=== PATIENT | male | born 1965 | race African-American/Black ===

== ENCOUNTER 2017-09-15 19:08 | Emergency (ER) | payer OTHER ==
[2017-09-15] MEDS ORDERED: KETOROLAC TROMETHAMINE 60 MG/2 ML VIAL IM ONE (19:25)
--- NOTE | 2017-09-15 19:25 | PDOC ---
History of Present Illness - General History Source: Patient Exam Limitations: No Limitations - History of Present Illness Initial Comments: 09/15/17 20:18 Patient is a 52 year old male with a significant past medical history of Afib, who presents to the ED with complaints of right sided back pain that he states began this afternoon. 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 He reports pain increases with inhalation while both sitting and standing straight. He reported on arrival that he felt as is one of his lungs was going to explode due to pressure pain. Patient reports taking to Ibuprofen for pain with no relief. Denies Chest pain, Denies nausea, vomiting. Denies fevers, chills. Denies contact with sick individuals, out of state travelling. Denies any other symptoms. Allergies: None Social history: Current smoker (1 pack per day). No alcohol. No illicit drugs. Surgical history: None PMD: None <Rishabh Miller - Last Filed: 09/15/17 20:36> <Lexx Matt - Last Filed: 09/16/17 06:23> - General Chief Complaint: Pain, Acute Stated Complaint: RIGHT BACK PAIN SINCE 2PM Time Seen by Provider: 09/15/17 19:24 Past History <Rishabh Miller - Last Filed: 09/15/17 20:36> - Past Medical History Cardiac Disorders: Yes (A FIB) CVA: Yes (afib) COPD: No - Immunization History Immunization Up to Date: Yes - Suicide/Smoking/Psychosocial Hx Smoking History: Current every day smoker Have you smoked in the past 12 months: Yes Number of Cigarettes Smoked Daily: 20 Cigars Per Day: 0 Information on smoking cessation initiated: Yes 'Breaking Loose' booklet given: 05/25/16 Hx Alcohol Use: No Drug/Substance Use Hx: No Substance Use Type: Cocaine Hx Substance Use Treatment: No <Lexx Matt - Last Filed: 09/16/17 06:23> - Past Medical History Allergies/Adverse Reactions: Allergies Allergy/AdvReac Type Severity Reaction Status Date / Time No Known Allergies Allergy Verified 09/15/17 19:10 Home Medications: Ambulatory Orders Aspirin 81 mg PO DAILY 09/15/17 Review of Systems - Review of Systems Able to Perform ROS?: Yes Comments:: 09/15/17 20:18 GENERAL/CONSTITUTIONAL: No fever or chills. No weakness. HEAD, EYES, EARS, NOSE AND THROAT: No change in vision. No ear pain or discharge. No sore throat. CARDIOVASCULAR: No chest pain or shortness of breath. RESPIRATORY: No cough, wheezing, or hemoptysis. GASTROINTESTINAL: No nausea, vomiting, diarrhea or constipation. GENITOURINARY: No dysuria, frequency, or change in urination. MUSCULOSKELETAL: +Right sided back pain. No joint or muscle swelling or pain. No neck. SKIN: No rash NEUROLOGIC: No headache, vertigo, loss of consciousness, or change in strength/ sensation. ENDOCRINE: No increased thirst. No abnormal weight change. HEMATOLOGIC/LYMPHATIC: No anemia, easy bleeding, or history of blood clots. ALLERGIC/IMMUNOLOGIC: No hives or skin allergy. All Other Systems: Reviewed and Negative <Rishabh Miller - Last Filed: 09/15/17 20:36> *Physical Exam - Vital Signs Last Vital Signs Temp Pulse Resp BP Pulse Ox 97.5 F L 78 20 147/92 100 09/15/17 19:14 09/15/17 19:14 09/15/17 19:14 09/15/17 20:18 09/15/17 19:14 - Physical Exam Comments: 09/15/17 20:19 GENERAL: Awake, alert, and fully oriented, in no acute distress HEAD: No signs of trauma EYES: PERRLA, EOMI, sclera anicteric, conjunctiva clear ENT: Auricles normal inspection, hearing grossly normal, nares patent, oropharynx clear without exudates. Moist mucosa NECK: Normal ROM, supple, no lymphadenopathy, JVD, or masses LUNGS: Breath sounds equal, clear to auscultation bilaterally. No wheezes, and no crackles HEART: Regular rate and rhythm, normal S1 and S2, no murmurs, rubs or gallops ABDOMEN: Soft, nontender, normoactive bowel sounds. No guarding, no rebound. No masses BACK: +Tender to mid thoracic back. EXTREMITIES: Normal range of motion, no edema. No clubbing or cyanosis. No cords, erythema, or tenderness NEUROLOGICAL: Cranial nerves II through XII grossly intact. Normal speech. SKIN: Warm, Dry, normal turgor, no rashes or lesions noted. <Rishabh Miller - Last Filed: 09/15/17 20:36> - Vital Signs Last Vital Signs Temp Pulse Resp BP Pulse Ox 97.5 F L 78 20 183/104 100 09/15/17 19:14 09/15/17 19:14 09/15/17 19:14 09/15/17 19:14 09/15/17 19:14 <Lexx Matt - Last Filed: 09/16/17 06:23> Procedures - Additional Procedures Additional Procedures: other (90% improved. BP 147/92) <Rishabh Miller - Last Filed: 09/15/17 20:36> ED Treatment Course - Medications Given in the ED: ED Medications Discontinued Medications Generic Name Dose Route Start Last Admin Trade Name Enoch PRN Reason Stop Dose Admin Ketorolac Tromethamine 60 mg 09/15/17 19:25 09/15/17 19:37 Toradol Injection - IM 09/15/17 19:26 60 mg ONCE ONE Administration <Rishabh Miller - Last Filed: 09/15/17 20:36> Medical Decision Making - Medical Decision Making 09/16/17 06:22 plain film -, as read by me, referred to radiology for definitive review a/p MSK LBP nsaids <Lexx Matt - Last Filed: 09/16/17 06:23> *DC/Admit/Observation/Transfer - Attestations Scribe Attestion: 09/15/17 20:19 Documentation prepared by Rishabh Miller, acting as medical billing specialist for Lexx Matt MD/DO. <Rishabh Miller - Last Filed: 09/15/17 20:36> <Lexx Matt - Last Filed: 09/16/17 06:23> Diagnosis at time of Disposition: Muscular pain - Discharge Dispostion Disposition: HOME Condition at time of disposition: Stable - Referrals Referrals: Eugenia Koehler MD [Staff Physician] - Call tomorrow - Patient Instructions Printed Discharge Instructions: DI for Muscle Strain
[2017-09-15 19:26] VITALS: PULSE 78; TEMP 97.5; BMI 27.3
[2017-09-15] MEDS ORDERED: KETOROLAC TROMETHAMINE 60 MG/2 ML VIAL ONE (19:35)
[2017-09-15 20:18] VITALS: BP 147/92
== END 2017-09-15 20:29 | disposition home or self-care (01) ==
LOC: FER 19:08
PROC: 3E0233Z Introduction of Anti-inflammatory into Muscle, Percutaneous Approach (ICD-10-PCS; principal; 2017-09-15)
DX: M79.1 Myalgia (principal); I48.91 Unspecified atrial fibrillation; F17.210 Nicotine dependence, cigarettes, uncomplicated
CPT/HCPCS: 71046-TC; 96372; 99281-25

== ENCOUNTER 2018-07-28 09:11 | Emergency (ER) | payer OTHER ==
--- NOTE | 2018-07-28 09:19 | PDOC ---
History of Present Illness - General Chief Complaint: Chest Pain Stated Complaint: CHEST PAIN HYPERTENSION Time Seen by Provider: 07/28/18 09:18 History Source: Patient Exam Limitations: No Limitations - History of Present Illness Initial Comments: 07/28/18 09:19 History of Present Illness: Mr. Roberson 53 yo man w/ prior h/o atrial fibrillation (never treated with anticoagulants), h/o cocaine use (last used 1 year ago). Pt presents today for assessment of chest pain. He states that chest pain began while sleeping at 2am. He took 2 aspirin and drank gingerale but this did not improve his pain. He went to [facility] where he had a work up and was admitted to the floors. Pt eloped from the inpatient unit and decided to come to [facility]. Pt reports that his chest pain lasted until he was given an injection in the hospital early this morning. Pain is described as being hit with a hammer in the center of his chest, no radiation,. No associated shortness of breath, no travel, no cough, no fevers or chills. When pain began, it was 8/10, no it is less (4/10) PMH: Afib PSH: Denies Meds: denies ALL: NKDA Social: (+) cigarettes 10/day x 4 years Denies drug use Denies Alcohol use FH: Heart Disease: Grandparent ([place] and bypass surgery) Mother - [place] age 66, CABG Father - [place] age 70, ROS: GENERAL/CONSTITUTIONAL: No: fever, chills, weakness, loss of appetite. HEAD, EYES, EARS, NOSE AND THROAT: No: change in vision, ear pain, discharge, sore throat, throat swelling. CARDIOVASCULAR: Yes: chest pain No: lightheadedness, palpitations, syncope RESPIRATORY: No: cough, shortness of breath, wheezing, hemoptysis, stridor. GASTROINTESTINAL: No: nausea, vomiting, diarrhea, abdominal cramping, rectal bleeding, constipation. GENITOURINARY: No: dysuria, hematuria, frequency, urgency, flank pain. MUSCULOSKELETAL: No: back pain, neck pain, joint pain, muscle swelling or pain SKIN AND BREASTS: No: lesions, pallor, rash or easy bruising. NEUROLOGIC: No: headache, vertigo, paresthesias, weakness ENDOCRINE: No: unexplained weight gain or loss HEMATOLOGIC/LYMPHATIC: No: anemia, easy bleeding, swelling nodes. PE: GENERAL: The patient is in no acute distress. HEAD: Normal EYES: PERRLA, EOMI, sclera anicteric, conjunctiva clear. ENT: Ears normal, nares patent, oropharynx clear without exudates. Moist mucous membranes. NECK: Normal range of motion, supple without JVD LUNGS: Breath sounds equal, clear to auscultation bilaterally. No wheezes, and no crackles. HEART:Regular rate and rhythm, normal S1 and S2 without murmur, rub or gallop. ABDOMEN: Soft, nontender, normoactive bowel sounds. No guarding, no rebound. No masses palpable. EXTREMITIES: Normal range of motion, no edema. No clubbing or cyanosis. No erythema, or tenderness. NEUROLOGICAL: Cranial nerves II through XII grossly intact. Normal speech. No focal neurological deficits. MUSCULOSKELETAL: Back non-tender to palpation, no CVA tenderness SKIN: Warm, Dry, normal turgor, no rashes or lesions noted. 07/28/18 09:50 07/28/18 14:16 Past History - Past Medical History Allergies/Adverse Reactions: Allergies Allergy/AdvReac Type Severity Reaction Status Date / Time No Known Allergies Allergy Verified 07/28/18 11:08 Home Medications: Ambulatory Orders NK [No Known Home Medication] 07/28/18 Cardiac Disorders: Yes (A FIB) CVA: Yes (afib) COPD: No - Immunization History Immunization Up to Date: Yes - Suicide/Smoking/Psychosocial Hx Smoking History: Current every day smoker Have you smoked in the past 12 months: Yes Number of Cigarettes Smoked Daily: 20 Cigars Per Day: 0 'Breaking Loose' booklet given: 05/25/16 Hx Alcohol Use: No Drug/Substance Use Hx: No Substance Use Type: Cocaine Hx Substance Use Treatment: No *Physical Exam - Vital Signs Last Vital Signs Temp Pulse Resp BP Pulse Ox 98.1 F 64 12 147/86 100 07/28/18 09:13 07/28/18 18:05 07/28/18 18:05 07/28/18 18:05 07/28/18 18:05 Moderate Sedation - Procedure Monitoring Vital Signs: Procedure Monitoring Vital Signs Temperature 98.1 F 07/28/18 09:13 Pulse Rate 64 07/28/18 18:05 Respiratory Rate 12 07/28/18 18:05 Blood Pressure 147/86 07/28/18 18:05 O2 Sat by Pulse Oximetry (%) 100 07/28/18 18:05 ED Treatment Course - LABORATORY CBC & Chemistry Diagram: 07/28/18 10:02 07/28/18 10:22 - ADDITIONAL ORDERS Additional order review: Laboratory Results 07/28/18 07/28/18 07/28/18 14:23 14:23 12:20 PT with INR INR Sodium Potassium Chloride Carbon Dioxide Anion Gap BUN Creatinine Creat Clearance w eGFR Random Glucose Calcium Magnesium Total Bilirubin AST ALT Alkaline Phosphatase Creatine Kinase 568 H Creatine Kinase Index 15.5 H* CK-MB (CK-2) 88.1 H Troponin I 5.27 H* D Total Protein Albumin Opiates Screen Negative Methadone Screen Negative Barbiturate Screen Negative Phencyclidine Screen Negative Ur Amphetamines Screen Negative MDMA (Ecstasy) Screen Negative Benzodiazepines Screen Negative Cocaine Screen Negative U Marijuana (THC) Screen Negative 07/28/18 07/28/18 07/28/18 10:22 10:22 10:02 PT with INR 12.4 INR 1.11 Sodium 137 Potassium 4.0 Chloride 109 H Carbon Dioxide 22 Anion Gap 6 L BUN 10 Creatinine 1.0 Creat Clearance w eGFR > 60 Random Glucose 93 Calcium 9.4 Magnesium 1.9 Total Bilirubin 0.6 AST 38 ALT 35 Alkaline Phosphatase 85 Creatine Kinase 430 H Creatine Kinase Index 14.9 H* CK-MB (CK-2) 64.2 H Troponin I 1.89 H* Total Protein 6.2 L Albumin 3.6 Opiates Screen Methadone Screen Barbiturate Screen Phencyclidine Screen Ur Amphetamines Screen MDMA (Ecstasy) Screen Benzodiazepines Screen Cocaine Screen U Marijuana (THC) Screen 07/28/18 10:02 RBC 4.91 MCV 90.6 MCHC 33.0 RDW 14.9 MPV 9.4 Neutrophils % 67.9 Lymphocytes % 22.3 Monocytes % 5.4 Eosinophils % 3.1 Basophils % 1.3 - RADIOLOGY Radiology Studies Ordered: Category Date Time Status CHEST X-RAY PORTABLE* [RAD] Stat Radiology 07/28/18 09:41 Completed - Medications Given in the ED: ED Medications Discontinued Medications Generic Name Dose Route Start Last Admin Trade Name Freq PRN Reason Stop Dose Admin Aspirin 325 mg 07/28/18 10:58 11/28/18 11:05 Asa - PO 07/28/18 10:59 Not Given ONCE ONE Atorvastatin Calcium 80 mg 07/28/18 17:36 07/28/18 18:04 Lipitor - PO 07/28/18 17:37 80 mg ONCE ONE Administration Clopidogrel Bisulfate 600 mg 07/28/18 12:01 07/28/18 12:22 Plavix - PO 07/28/18 12:02 600 mg ONCE ONE Administration Enoxaparin Sodium 90 mg 07/28/18 12:10 07/28/18 12:22 Lovenox - SQ 07/28/18 12:11 90 mg ONCE ONE Administration Metoprolol Tartrate 5 mg 07/28/18 17:36 07/28/18 18:04 Lopressor Injection - IVPUSH 07/28/18 17:37 5 mg ONCE ONE Administration Medical Decision Making - Medical Decision Making Chest pain DD: cardiac ischemia, pe, asthma exacerbation, pneumonia, pneumothorax, pleural effusion, costochondritis, pericarditis, GERD. 07/28/18 09:41 EKG - NSR rate of 63 bpm, axis nml, no st elevation or depression, t waves upright, LVH 07/28/18 09:42 PE unlikely - low risk wells, no tachycardia, no shortness of breath 07/28/18 10:59 Laboratory Tests 07/28/18 07/28/18 07/28/18 10:02 10:02 10:22 WBC 11.0 H Hgb 14.7 Hct 44.4 Plt Count 245 INR 1.11 BUN 10 Creatinine 1.0 Creatine Kinase 430 H Troponin I 07/28/18 10:22 WBC Hgb Hct Plt Count INR BUN Creatinine Creatine Kinase Troponin I 1.89 H* 07/28/18 11:[address] Westbrook I was told that they do not come to [facility] and although the patient will be sent to [facility], We should call once he is at [facility] 07/28/18 11:39 Call placed to hospitalist Pt accepted for admission Pt took Asa at 200am 07/28/18 11:43 Trop at 5am - 0.015 (at [facility]) 07/28/18 11:50 Call again placed to Pietro's office I have explained to the woman answering the phones that this patient will be sent to [facility] and we are calling re: recommendations 07/28/18 13:14 No Tele beds Call placed to [facility] Will transfer 07/28/18 15:11 Repeat trop 5 Repeat EKG - Same as prior Will transfer to [facility] 07/28/18 15:19 07/28/18 17:29 Dr casanova updated on this patient's repeat trop Hospitalist also updated Call placed again to [facility] Inventory Checker re: contacting [facility] for a bed 07/28/18 18:26 EKG - SR Rate of 56 bpm axis nml, no st elevation or depression, t wave upright , st unchanged 07/28/18 18:44 Accepted to [facility] *DC/Admit/Observation/Transfer Diagnosis at time of Disposition: Non-ST elevation (NSTEMI) myocardial infarction Chest pain Qualifiers: Chest pain type: unspecified Qualified Code(s): R07.9 - Chest pain, unspecified - Discharge Dispostion Condition at time of disposition: Stable Decision to Admit order: Yes Decision to Admit order Date/Time: Decision to Admit Order Category Date Time Status Decision to Admit to Hospital Routine Admission 07/28/18 11:30 Active - Referrals - Patient Instructions - Post Discharge Activity
[2018-07-28 09:39] VITALS: BMI 31.0
[2018-07-28 10:19] LABS: BASO % 1.3 % (0-2.0); EOS % 3.1 % (0-4.5); HEMATOCRIT 44.4 % (35.4-49); HEMOGLOBIN 14.7 GM/dl (11.7-16.9); LYMPH % 22.3 % (8-40); MCH 29.9 pg (25.7-33.7); MEAN CELL VOLUME 90.6 fl (80-96); MEAN PLT VOLUME 9.4 fl (7.5-11.1); MONO % 5.4 % (3.8-10.2); NEUT % 67.9 % (42.8-82.8); PLATELET COUNT 245 K/MM3 (134-434); RBC 4.91 M/mm3 (4.00-5.60); RDW 14.9 % (11.9-15.9)
[2018-07-28 10:36] LABS: INR 1.11 (0.82-1.09); PROTHROMBIN TIME (PATIENT) 12.4 SEC (10.2-13.0)
[2018-07-28 10:46] LABS: ALBUMIN 3.6 g/dl (3.5-5.0); ALK PHOS 85 U/L (32-92); ANION GAP 6 MMOL/L (8-16); BILIRUBIN,TOTAL 0.6 mg/dl (0.2-1.0); BLOOD UREA NITROGEN 10 mg/dl (7-18); CALCIUM 9.4 mg/dl (8.4-10.2); CHLORIDE 109 mmol/L (98-107); CO2 22 mmol/L (22-28); GLUCOSE,RANDOM 93 mg/dl (74-106); MAGNESIUM 1.9 mg/dL (1.8-2.4); SGOT/AST 38 U/L (10-42); SGPT/ALT 35 U/L (10-40); SODIUM 137 mmol/L (136-145); TOT PROT 6.2 g/dl (6.4-8.3)
[2018-07-28] MEDS ORDERED: ASPIRIN 325 MG TABLET PO ONE (10:58)
[2018-07-28] MEDS ORDERED: CLOPIDOGREL BISULFATE 300 MG TABLET PO ONE (12:01)
[2018-07-28] MEDS ORDERED: ENOXAPARIN NA (PORCINE) 40 MG/0.4 ML DISP.SYRIN SQ ONE (12:10)
[2018-07-28] MEDS ORDERED: CLOPIDOGREL BISULFATE 300 MG TABLET ONE (12:13)
[2018-07-28] MEDS ORDERED: ENOXAPARIN NA (PORCINE) 100 MG/1 ML DISP.SYRIN SQ ONE (12:14)
--- NOTE | 2018-07-28 13:39 | HP ---
CHIEF COMPLAINT: PCP: HISTORY OF PRESENT ILLNESS: Mr. Roberson 53 yo man w/ prior h/o atrial fibrillation (never treated with anticoagulants), h/o cocaine use (last used 1 year ago). Pt presents to [facility] for assessment of chest pain. He states that chest pain began while sleeping at 2am. He went to [facility] where he had a work up and was admitted to the floors. Pt eloped from the inpatient unit and decided to come to [facility]. Pt reports that his chest pain lasted until he was given an injection in the hospital early this morning. Pain is described as being hit with a hammer in the center of his chest, no radiation,. No associated shortness of breath, no travel, no cough, no fevers or chills. When pain began, it was 8/10, no it is less (4/10) PMH: Afib PSH: Denies Meds: denies ALL: NKDA Social: (+) cigarettes 10/day x 4 years Denies drug use Denies Alcohol use FH: Heart Disease: Grandparent ([place] and bypass surgery) Mother - [place] age 66, CABG Father - [place] age 70, ER course was notable for: (1) (2) (3) Recent Travel: PAST MEDICAL HISTORY: PAST SURGICAL HISTORY: Social History: Smoking: Alcohol: Drugs: Family History: Allergies No Known Allergies Allergy (Verified 07/28/18 11:08) HOME MEDICATIONS: Home Medications Medication Instructions Recorded NK [No Known Home Medication] 07/28/18 REVIEW OF SYSTEMS CONSTITUTIONAL: Absent: fever, chills, diaphoresis, generalized weakness, malaise, loss of appetite, weight change HEENT: Absent: rhinorrhea, nasal congestion, throat pain, throat swelling, difficulty swallowing, mouth swelling, ear pain, eye pain, visual changes CARDIOVASCULAR: Absent: chest pain, syncope, palpitations, irregular heart rate, lightheadedness , peripheral edema RESPIRATORY: Absent: cough, shortness of breath, dyspnea with exertion, orthopnea, wheezing, stridor, hemoptysis GASTROINTESTINAL: Absent: abdominal pain, abdominal distension, nausea, vomiting, diarrhea, constipation, melena, hematochezia GENITOURINARY: Absent: dysuria, frequency, urgency, hesitancy, hematuria, flank pain, genital pain MUSCULOSKELETAL: Absent: myalgia, arthralgia, joint swelling, back pain, neck pain SKIN: Absent: rash, itching, pallor HEMATOLOGIC/IMMUNOLOGIC: Absent: easy bleeding, easy bruising, lymphadenopathy, frequent infections ENDOCRINE: Absent: unexplained weight gain, unexplained weight loss, heat intolerance, cold intolerance NEUROLOGIC: Absent: headache, focal weakness or paresthesias, dizziness, unsteady gait, seizure, mental status changes, bladder or bowel incontinence PSYCHIATRIC: Absent: anxiety, depression, suicidal or homicidal ideation, hallucinations. PHYSICAL EXAMINATION Vital Signs - 24 hr 07/28/18 07/28/18 07/28/18 09:13 09:41 11:00 Temperature 98.1 F Pulse Rate 62 Pulse Rate [ 54 L Left Radial] Respiratory 16 16 Rate Blood Pressure 167/91 Blood Pressure [Left Arm] Blood Pressure 151/80 155/98 [Right Arm] O2 Sat by Pulse 100 Oximetry (%) 07/28/18 07/28/18 07/28/18 12:31 12:41 12:42 Temperature Pulse Rate Pulse Rate [ 66 58 L 72 Left Radial] Respiratory 16 Rate Blood Pressure Blood Pressure 172/100 H [Left Arm] Blood Pressure 163/91 162/94 [Right Arm] O2 Sat by Pulse 100 100 100 Oximetry (%) GENERAL: Awake, alert, and fully oriented, in no acute distress. HEAD: Normal with no signs of trauma. EYES: Pupils equal, round and reactive to light, extraocular movements intact, sclera anicteric, conjunctiva clear. No lid lag. EARS, NOSE, THROAT: Ears normal, nares patent, oropharynx clear without exudates. Moist mucous membranes. NECK: Normal range of motion, supple without lymphadenopathy, JVD, or masses. LUNGS: Breath sounds equal, clear to auscultation bilaterally. No wheezes, and no crackles. No accessory muscle use. HEART: Regular rate and rhythm, normal S1 and S2 without murmur, rub or gallop. ABDOMEN: Soft, nontender, not distended, normoactive bowel sounds, no guarding, no rebound, no masses. No hepatomegaly or splenomegaly. MUSCULOSKELETAL: Normal range of motion at all joints. No bony deformities or tenderness. No CVA tenderness. UPPER EXTREMITIES: 2+ pulses, warm, well-perfused. No cyanosis. No clubbing. No peripheral edema. LOWER EXTREMITIES: 2+ pulses, warm, well-perfused. No calf tenderness. No peripheral edema. NEUROLOGICAL: Cranial nerves II-XII intact. Normal speech. Normal gait. PSYCHIATRIC: Cooperative. Good eye contact. Appropriate mood and affect. SKIN: Warm, dry, normal turgor, no rashes or lesions noted, normal capillary refill. Laboratory Results - last 24 hr 07/28/18 07/28/18 07/28/18 10:02 10:02 10:22 WBC 11.0 H RBC 4.91 Hgb 14.7 Hct 44.4 MCV 90.6 MCH 29.9 MCHC 33.0 RDW 14.9 Plt Count 245 MPV 9.4 Absolute Neuts (auto) 7.5 Neutrophils % 67.9 Lymphocytes % 22.3 Monocytes % 5.4 Eosinophils % 3.1 Basophils % 1.3 PT with INR 12.4 INR 1.11 Sodium 137 Potassium 4.0 Chloride 109 H Carbon Dioxide 22 Anion Gap 6 L BUN 10 Creatinine 1.0 Creat Clearance w eGFR > 60 Random Glucose 93 Calcium 9.4 Magnesium 1.9 Total Bilirubin 0.6 AST 38 ALT 35 Alkaline Phosphatase 85 Creatine Kinase 430 H Creatine Kinase Index 14.9 H* CK-MB (CK-2) 64.2 H Troponin I Total Protein 6.2 L Albumin 3.6 07/28/18 10:22 WBC RBC Hgb Hct MCV MCH MCHC RDW Plt Count MPV Absolute Neuts (auto) Neutrophils % Lymphocytes % Monocytes % Eosinophils % Basophils % PT with INR INR Sodium Potassium Chloride Carbon Dioxide Anion Gap BUN Creatinine Creat Clearance w eGFR Random Glucose Calcium Magnesium Total Bilirubin AST ALT Alkaline Phosphatase Creatine Kinase Creatine Kinase Index CK-MB (CK-2) Troponin I 1.89 H* Total Protein Albumin ASSESSMENT/PLAN:
[2018-07-28 14:12] LABS: COCAINE, UR NEGATIVE ng/ml (CUTOFF=300); METHADONE, UR NEGATIVE ng/ml (CUTOFF=300); OPIATES, URI NEGATIVE ng/ml (CUTOFF=300); PHENCYCLIDINE,URINE NEGATIVE ng/ml (CUTOFF=25); URINE AMPHETAMINES NEGATIVE ng/ml (CUTOFF=500); URINE BARBITURATES NEGATIVE ng/ml (CUTOFF=200); URINE BENZODIAZEPINES NEGATIVE ng/ml (CUTOFF=200)
--- NOTE | 2018-07-28 15:53 | EKG ---
Test Reason : Blood Pressure : / mmHG Vent. Rate : 063 BPM Atrial Rate : 063 BPM P-R Int : 146 ms QRS Dur : 088 ms QT Int : 422 ms P-R-T Axes : 070 035 025 degrees QTc Int : 431 ms NORMAL SINUS RHYTHM MINIMAL VOLTAGE CRITERIA FOR LVH, MAY BE NORMAL VARIANT BORDERLINE ECG WHEN COMPARED WITH ECG OF 10-DEC-2014 06:13, CRITERIA FOR SEPTAL INFARCT ARE NO LONGER PRESENT Confirmed by RADHA ALVA, ALEIDA ([id number]) on 07/28/2018 3:52:45 PM Referred By: DAVINA GOLDMAN Confirmed By:ALEIDA GARCIA MD
[2018-07-28] MEDS ORDERED: METOPROLOL TARTRATE 5 MG/5 ML VIAL IVPUSH ONE (17:36)
[2018-07-28] MEDS ORDERED: ATORVASTATIN CA 80 MG TABLET (FP) PO ONE (17:36)
[2018-07-28] MEDS ORDERED: ATORVASTATIN CA 80 MG TABLET (FP) ONE (17:56)
[2018-07-28] MEDS ORDERED: METOPROLOL TARTRATE 5 MG/5 ML VIAL ONE (17:56)
--- NOTE | 2018-07-28 18:12 | PN ---
Progress Note (short form) - Note Progress Note: spoken with Dr Clancy debug technician crew caller recommend to continue current menagement with ASA , plavix , lovenox, BB, Nitro if develop chest pain pt is pending transfer to 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 today .
[2018-07-28 18:45] VITALS: BP 158/87
[2018-07-28 18:52] VITALS: PULSE 58; TEMP 98.6
[2018-07-28] MEDS ORDERED: ENOXAPARIN NA (PORCINE) 100 MG/1 ML DISP.SYRIN SQ SCH (23:30)
--- NOTE | 2018-07-29 15:28 | EKG ---
Test Reason : Blood Pressure : / mmHG Vent. Rate : 061 BPM Atrial Rate : 061 BPM P-R Int : 146 ms QRS Dur : 088 ms QT Int : 436 ms P-R-T Axes : 069 038 026 degrees QTc Int : 438 ms NORMAL SINUS RHYTHM MODERATE VOLTAGE CRITERIA FOR LVH, MAY BE NORMAL VARIANT BORDERLINE ECG WHEN COMPARED WITH ECG OF 28-JUL-2018 09:23, NO SIGNIFICANT CHANGE WAS FOUND Confirmed by JOSEPH ALVA, SUBHA ([id number]) on 07/29/2018 3:28:15 PM Referred By: DAVINA GOLDMAN Confirmed By:SUBHA RUIZ MD
== END 2018-07-28 20:01 | disposition short-term general hospital (02) ==
LOC: FER 09:11
PROC: 3E023GC Introduction of Other Therapeutic Substance into Muscle, Percutaneous Approach (ICD-10-PCS; principal; 2018-07-28)
PROC: 3E033GC Introduction of Other Therapeutic Substance into Peripheral Vein, Percutaneous Approach (ICD-10-PCS; 2018-07-28)
DX: I21.3 ST elevation (STEMI) myocardial infarction of unspecified site (principal); R07.9 Chest pain, unspecified; F14.11 Cocaine abuse, in remission; F17.210 Nicotine dependence, cigarettes, uncomplicated
CPT/HCPCS: 36415; 71045-TC-FY; 80053; 80307; 82550; 82553; 83735; 84484; 85025; 85610; 93005; 99285-25

== ENCOUNTER 2023-01-22 22:37 | Emergency (ER) | payer OTHER ==
[2023-01-22] MEDS ORDERED: FAMOTIDINE 20 MG/50 ML IVPB 20 MG/50 ML MG IVPB ONE ×2 (22:57→23:12)
[2023-01-22] MEDS ORDERED: KETOROLAC TROMETHAMINE 30 MG/1 ML VIAL IVPUSH ONE (22:57)
[2023-01-22 23:09] LABS: HEMATOCRIT 41.3 % (35.4-49); MCH 30.6 pg (25.7-33.7); MCHC 33.9 g/dl (32.0-35.9); MEAN CELL VOLUME 90.3 fl (80-96); MEAN PLT VOLUME 9.7 fl (7.5-11.1); PLATELET COUNT 244.8 10^3/uL (134-434); RBC 4.57 10^6/uL (4.00-5.60); RDW 15.9 % (11.9-15.9); WHITE BLOOD COUNT 16.3 10^3/uL (4.0-10.8)
[2023-01-22] MEDS ORDERED: KETOROLAC TROMETHAMINE 30 MG/1 ML VIAL ONE (23:12)
[2023-01-22 23:23] LABS: ALBUMIN 3.7 g/dl (3.4-5.0); BILIRUBIN,TOTAL 0.4 mg/dl (0.2-1); CALCIUM 9.5 mg/dl (8.5-10); CREATININE 1.4 mg/dl (0.55-1.3); POTASSIUM 3.8 mmol/L (3.5-5.1); TOT PROT 6.2 g/dl (6.4-8.2)
[2023-01-22 23:36] VITALS: BP 179/84; PULSE 56; RESP 18; TEMP 98.4; BMI 34.8
== END 2023-01-23 02:23 | disposition home or self-care (01) ==
LOC: FER 22:37
PROC: 3E033GC Introduction of Other Therapeutic Substance into Peripheral Vein, Percutaneous Approach (ICD-10-PCS; principal; 2023-01-22)
PROC: 3E0333Z Introduction of Anti-inflammatory into Peripheral Vein, Percutaneous Approach (ICD-10-PCS; 2023-01-22)
DX: K59.00 Constipation, unspecified (principal); R10.13 Epigastric pain; Z20.822 Contact with and (suspected) exposure to COVID-19
CPT/HCPCS: 0241U-QW; 36415; 74177-TC; 76705-TC; 80053; 82550; 82553; 83690; 84484; 85027; 93005; 99285-25; Q9967

== ENCOUNTER 2024-04-25 14:05 | Emergency (ER) | payer OTHER ==
[2024-04-25 14:19] VITALS: BP 140/81; PULSE 78; RESP 18; TEMP 98.4; BMI 33.7
[2024-04-25] MEDS ORDERED: DIPHTH,PERTUSS(ACELL),TET 0.5 ML DISP.SYRIN IM ONE (15:31)
[2024-04-25] MEDS: DIPHTH,PERTUSS(ACELL),TET 0.5 ML DISP.SYRIN IM ONE (15:36)
== END 2024-04-25 16:00 | disposition home or self-care (01) ==
LOC: FER 14:05
PROC: 3E0234Z Introduction of Serum, Toxoid and Vaccine into Muscle, Percutaneous Approach (ICD-10-PCS; principal; 2024-04-25)
DX: S01.112A Laceration without foreign body of left eyelid and periocular area, initial encounter (principal); S09.90XA Unspecified injury of head, initial encounter; W18.39XA Other fall on same level, initial encounter; Y92.34 Swimming pool (public) as the place of occurrence of the external cause; Z23 Encounter for immunization
CPT/HCPCS: 90715; 99282-25